=== PATIENT | male | born 1965 | race Caucasian/White ===

== ENCOUNTER 2018-08-21 15:26 | Emergency (ER) | payer MEDICAID ==
[~2018-08-21] VITALS: Ht 162.6 cm; Wt 63.5 kg
--- NOTE | 2018-08-21 15:26 | NUR ---
PT BIBA ALS TO BED 5
[2018-08-21 15:32] VITALS: BP 135/80
--- NOTE | 2018-08-21 15:41 | NUR ---
DR HUFFMAN EVALUATING AT BEDSIDE
--- NOTE | 2018-08-21 15:42 | NUR ---
53 y.o male BIBA after the [place] PD found pt on the ground in a parking lot [address]. PD called [facility] and brought pt to us. Upon arrival pt has slurred, noncoherent speech, unable to follow commands and A&0X0. Pt is foaming from the mouth with white thick foam. Pt was transferred from rho ho kus and bed, connected to front desk monitor. Pts llungs are clear bilaterally and diminished at the bases. s1s2 is heard. Active and present bowel sounds in all 4 quadrants. Pupils are 2mm; equal and responsive, direct and consensual. Pt is able to move all extremities with full range of motion. Pt smells of alcohol and urine. Unknown hx, medications, medical hx, drug/ alcohol use.
--- NOTE | 2018-08-21 15:44 | NUR ---
XRAY AT BEDSIDE
[2018-08-21] MEDS ORDERED: NACL 0.9% 1,000 ML IV ONE (15:55)
--- NOTE | 2018-08-21 16:00 | NUR ---
lab at bedside
[2018-08-21 16:16] LABS: BASOPHILS % (AUTO) 0.5 % (0.0-2.0); EOSINOPHILS % (AUTO) 0.1 % (0.0-4.0); HEMATOCRIT 46.3 % (36-52); HEMOGLOBIN 15.6 g/dL (12.0-18.0); LYMPHOCYTES % (AUTO) 32.1 % (20.5-51.1); MEAN CORPUSCULAR HEMOGLOBIN 30 pg (27-31); MEAN CORPUSCULAR HGB CONC 34 g/dL (33-37); MEAN CORPUSCULAR VOLUME 88.8 fL (80-94); MONOCYTES # (AUTO) 0.2 K/uL (0.8-1.0); MONOCYTES % (AUTO) 3.6 % (1.7-9.3); NEUTROPHILS # (AUTO) 3.9 K/uL (1.8-7.7); NEUTROPHILS % (AUTO) 63.7 % (42.2-75.2); PLATELET COUNT (AUTO) 192 K/uL (140-450); RED BLOOD CELL COUNT(AUTO) 5.21 MIL/uL (4.20-6.10); RED CELL DISTRIBUTION WIDTH 13.4 % (11.6-13.7); WHITE BLOOD COUNT (AUTO) 6.1 K/uL (4.8-10.8)
--- NOTE | 2018-08-21 16:21 | NUR ---
PT TAKEN TO CT VIA [facility]
[2018-08-21 16:41] LABS: POTASSIUM 3.8 mmol/L (3.5-5.1); SODIUM SERUM 143 mmol/L (136-145)
[2018-08-21 16:42] LABS: ANION GAP 15.6 (8-16); CARBON DIOXIDE 22.2 mmol/L (21-32); CHLORIDE 109 mmol/L (98-107); CREATININE 0.9 mg/dL (0.7-1.3); GFR ARICAN-AMERICAN 113 mL/min (>90); GLUCOSE 121 mg/dL (74-106); UREA NITROGEN, BLOOD 10 mg/dL (7-18)
[2018-08-21 16:43] LABS: TOTAL BILIRUBIN 0.5 mg/dL (0.0-1.0)
[2018-08-21 16:44] LABS: ALBUMIN 4.4 g/dL (3.4-5.0); ASPARTATE AMINOTRANSFERASE 16 U/L (15-37)
[2018-08-21 16:45] LABS: SALICYLATE 1.1 mg/dL (2.8-20.0)
[2018-08-21 16:46] LABS: ACETAMINOPHEN < 0.5 ug/ml (10-30)
[2018-08-21 17:39] LABS: BARBITURATE, URINE NEGATIVE ng/ml (NEG <=200); BENZODIAZEPINE, URINE NEGATIVE ng/mL (NEG <=200); CANNABINOID, URINE NEGATIVE ng/mL (NEG <=50); COCAINE, URINE NEGATIVE ng/mL (NEG <=300)
[2018-08-21 17:40] LABS: OPIATE, URINE NEGATIVE ng/mL (NEG <=2000); PHENCYCLIDINE SCREEN,URINE NEGATIVE ng/mL (NEG <=25)
[2018-08-21 17:41] VITALS: BP 127/74
--- NOTE | 2018-08-21 17:42 | NUR ---
d/c pt home; ambulated to exit; removed arm band. Went through pt d/c packet and answered all questions. Pt denied further questions. Went over s/sx of when to return to ED, call 911, call PCP.
[2018-08-21 18:40] LABS: APPEARANCE,URINE CLEAR (CLEAR)
[2018-08-21 18:41] LABS: COLOR,URINE STRAW (YELLOW)
[2018-08-21 18:42] LABS: BLOOD, URINE NEGATIVE (NEGATIVE); UGLUCOSE NEGATIVE (NEGATIVE)
[2018-08-21 18:43] LABS: BILIRUBIN,URINE NEGATIVE (NEGATIVE); LEUKOCYTE ESTERASE ,URINE NEGATIVE (NEGATIVE); NITRITE, URINE NEGATIVE (NEGATIVE)
== END 2018-08-21 17:42 | disposition home or self-care (01) ==
LOC: MED 15:26
DX: F10.129 Alcohol abuse with intoxication, unspecified (principal); R40.1 Stupor
CPT/HCPCS: 36415; 70450; 71045; 80053; 80305; 81003; 82140; 82550; 84484; 85025; 93005; 99285; G0480; G0482; Q0092

== ENCOUNTER 2018-08-21 22:55 | Emergency (ER) | payer MEDICAID ==
[~2018-08-21] VITALS: Ht 162.6 cm; Wt 68.0 kg
[2018-08-21 22:55] VITALS: BP 131/93
[2018-08-21 23:00] VITALS: BP 131/93
[2018-08-21] MEDS: NACL 0.9% 2,000 ML IV ONE (23:37)
[2018-08-21 23:42] LABS: BASOPHILS % (AUTO) 0.5 % (0.0-2.0); EOSINOPHILS % (AUTO) 0.2 % (0.0-4.0); HEMOGLOBIN 16.1 g/dL (12.0-18.0); LYMPHOCYTES # (AUTO) 2.5 K/uL (2.0-11.5); MEAN CORPUSCULAR HEMOGLOBIN 30 pg (27-31); MEAN CORPUSCULAR HGB CONC 33 g/dL (33-37); MEAN CORPUSCULAR VOLUME 91.4 fL (80-94); MONOCYTES # (AUTO) 0.3 K/uL (0.8-1.0); MONOCYTES % (AUTO) 4.1 % (1.7-9.3); NEUTROPHILS # (AUTO) 3.5 K/uL (1.8-7.7); NEUTROPHILS % (AUTO) 55.2 % (42.2-75.2); PLATELET COUNT (AUTO) 176 K/uL (140-450); RED BLOOD CELL COUNT(AUTO) 5.36 MIL/uL (4.20-6.10); RED CELL DISTRIBUTION WIDTH 14.1 % (11.6-13.7); WHITE BLOOD COUNT (AUTO) 6.4 K/uL (4.8-10.8)
[2018-08-21 23:53] LABS: ANION GAP 13.3 (8-16); CARBON DIOXIDE 28.3 mmol/L (21-32); CHLORIDE 109 mmol/L (98-107); GLUCOSE 97 mg/dL (74-106); POTASSIUM 4.6 mmol/L (3.5-5.1); SODIUM SERUM 146 mmol/L (136-145)
[2018-08-21 23:54] LABS: CREATININE 0.9 mg/dL (0.7-1.3); GFR ARICAN-AMERICAN 113 mL/min (>90); UREA NITROGEN, BLOOD 8 mg/dL (7-18)
[2018-08-22] LABS: ASPARTATE AMINOTRANSFERASE 16 U/L (15-37); TOTAL BILIRUBIN 0.4 mg/dL (0.0-1.0)
[2018-08-22 00:01] LABS: ACETAMINOPHEN < 0.5 ug/ml (10-30); ALBUMIN 4.3 g/dL (3.4-5.0); SALICYLATE < 2.8 mg/dL (2.8-20.0)
== END 2018-08-22 01:18 | disposition left against medical advice (07) ==
LOC: MED 22:55
DX: F10.129 Alcohol abuse with intoxication, unspecified (principal)
CPT/HCPCS: 36415; 80053; 85025; 93005; 96360; 99285; G0480; G0482; J7030